=== PATIENT | female | born 1940 | race Caucasian/White ===

== ENCOUNTER 2020-05-07 08:27 | Outpatient (REF) | payer MEDICARE, OTHER, SELFPAY ==
--- NOTE | 2020-05-07 08:30 | MM_ITS ---
EXAMINATION: MM SCREENING DIGITAL BREAST TOMOSYNTHESIS, BILATERAL CLINICAL INFORMATION: Screening. Asymptomatic. The lifetime risk of breast cancer based on the Tyrer-Cuzick Model is 0.9%. COMPARISON: Mammography: May 02, 2019 and studies dating back to February 26, 2012 TECHNIQUE: Digital breast tomosynthesis is performed in both the craniocaudal and mediolateral oblique views along with computer-aided detection (CAD). Synthesized 2D images are generated from the tomosynthesis. FINDINGS: There are scattered areas of fibroglandular density (ACR BI-RADS breast composition Category b). There are no significant masses, abnormal calcifications, or other abnormalities. MM/MM tomosynthesis screening BI IMPRESSION: There are no significant changes from prior study. ASSESSMENT: BI-RADS 1: Negative RECOMMENDATION: Routine annual mammography screening. This patient's information was entered into a reminder system with a target due date for their next mammogram.
== END 2020-05-07 08:28 | disposition home or self-care (01) ==
LOC: HO.MAMMO 08:27
PROVIDERS: PCP Internal Medicine; Visit Provider Internal Medicine
DX: Z12.31 Encounter for screening mammogram for malignant neoplasm of breast (principal)
CPT/HCPCS: 77063; 77067

== ENCOUNTER 2021-05-08 09:43 | Outpatient (REF) | payer MEDICARE, OTHER, SELFPAY ==
--- NOTE | ~2021-05-08 | MM_ITS ---
EXAMINATION: MM SCREENING DIGITAL BREAST TOMOSYNTHESIS, BILATERAL CLINICAL INFORMATION: Screening. Asymptomatic. The lifetime risk of breast cancer based on the Tyrer-Cuzick Model is 1%. COMPARISON: Mammography: 05/07/2020, 05/02/2019, 04/30/2018 TECHNIQUE: Digital breast tomosynthesis is performed in both the craniocaudal and mediolateral oblique views along with computer-aided detection (CAD). Synthesized 2D images are generated from the tomosynthesis. FINDINGS: There are scattered areas of fibroglandular density (ACR BI-RADS breast composition Category b). Parenchymal pattern is similar to prior studies. There is fine fibronodular parenchymal pattern with minor stable asymmetries. No developing density or interval mass or architectural abnormality. No abnormal calcifications. Skin contours are smooth. MM/MM tomosynthesis screening BI IMPRESSION: No mammographic evidence of malignancy. ASSESSMENT: BI-RADS 2: Benign RECOMMENDATION: Routine annual mammography screening. This patient's information was entered into a reminder system with a target due date for their next mammogram.
== END 2021-05-08 09:44 | disposition home or self-care (01) ==
LOC: HO.MAMMO 09:43
PROVIDERS: PCP Internal Medicine; Visit Provider Internal Medicine
DX: Z12.31 Encounter for screening mammogram for malignant neoplasm of breast (principal)
CPT/HCPCS: 77063; 77067

== ENCOUNTER 2021-06-09 09:27 | Outpatient (REF) | payer MEDICARE, OTHER, SELFPAY ==
[2021-06-09 10:50] LABS: Free T4 (Free Thyroxine) 0.83 ng/dL (0.71-1.85); Thyroid Stimulating Hormone 0.18 uIU/mL (0.32-4.0); Vitamin D 25-OH Total 85.9 ng/mL (>30)
[2021-06-10 04:46] LABS: Triiodothyronine T3 Free 2.7 pg/mL (2.3-4.2)
== END 2021-06-09 09:28 | disposition home or self-care (01) ==
LOC: HO.LAB 09:27
PROVIDERS: PCP Internal Medicine; Visit Provider Family Medicine
DX: E03.8 Other specified hypothyroidism (principal); E55.9 Vitamin D deficiency, unspecified
CPT/HCPCS: 36415; 82306; 84439; 84443; 84481

== ENCOUNTER 2022-05-09 10:03 | Outpatient (REF) | payer MEDICARE, OTHER, SELFPAY ==
--- NOTE | ~2022-05-09 | MM_ITS ---
EXAMINATION: MM SCREENING DIGITAL BREAST TOMOSYNTHESIS, BILATERAL CLINICAL INFORMATION: Screening. Asymptomatic. COMPARISON: Mammography: 05/08/2021, 05/07/2020, 05/02/2019 TECHNIQUE: Digital breast tomosynthesis is performed in both the craniocaudal and mediolateral oblique views along with computer-aided detection (CAD). Synthesized 2D images are generated from the tomosynthesis. FINDINGS: There are scattered areas of fibroglandular density (ACR BI-RADS breast composition Category b). There are no significant masses, abnormal calcifications, or other abnormalities. Parenchymal pattern is similar to prior studies. There is no developing density or architectural abnormality. The axilla and skin contours are unremarkable. No significant changes. MM/MM tomosynthesis screening BI IMPRESSION: No mammographic evidence of malignancy. ASSESSMENT: BI-RADS 1: Negative RECOMMENDATION: Routine annual mammography screening. This patient's information was entered into a reminder system with a target due date for their next mammogram.
== END 2022-05-09 10:04 | disposition home or self-care (01) ==
LOC: HO.MAMMO 10:03
PROVIDERS: PCP Internal Medicine; Visit Provider Internal Medicine
DX: Z12.31 Encounter for screening mammogram for malignant neoplasm of breast (principal)
CPT/HCPCS: 77063; 77067

== ENCOUNTER 2023-05-15 09:53 | Outpatient (REF) | payer MEDICARE, OTHER, SELFPAY ==
--- NOTE | ~2023-05-15 | MM_ITS ---
EXAMINATION: MM SCREENING DIGITAL BREAST TOMOSYNTHESIS, BILATERAL CLINICAL INFORMATION: Screening. Asymptomatic. COMPARISON: Mammography: This study is compared with prior exams dating back to 2017. TECHNIQUE: Digital breast tomosynthesis is performed in both the craniocaudal and mediolateral oblique views along with computer-aided detection (CAD). Synthesized 2D images are generated from the tomosynthesis. FINDINGS: There are scattered areas of fibroglandular density (ACR BI-RADS breast composition Category b). There are no significant masses, abnormal calcifications, or other abnormalities. There is minor architectural change at the upper inner quadrant of the right breast from prior surgery for benign disease. There is a cardiac loop recorder the medial aspect of the left breast. MM/MM tomosynthesis screening BI IMPRESSION: No mammographic evidence of malignancy. ASSESSMENT: BI-RADS BI-RADS 2 - Benign Findings RECOMMENDATION: Routine annual mammography screening. 1 year F/U This examination should not preclude the clinical evaluation of a suspicious palpable abnormality. This patient's information was entered into a reminder system with a target due date for their next mammogram.
== END 2023-05-15 09:54 | disposition home or self-care (01) ==
LOC: HO.MAMMO 09:53
PROVIDERS: Visit Provider Internal Medicine
DX: Z12.31 Encounter for screening mammogram for malignant neoplasm of breast (principal)
CPT/HCPCS: 77063; 77067

== ENCOUNTER → 2023-05-15 10:00 | Outpatient (BNV) | payer MEDICARE, OTHER, SELFPAY | PROVIDERS: Visit Provider Radiology Diagnostic Radiology | DX: Z12.31 Encounter for screening mammogram for malignant neoplasm of breast (principal) | CPT/HCPCS: 77063; 77067 ==

== ENCOUNTER 2024-05-18 09:55 | Outpatient (REF) | payer MEDICARE, OTHER, SELFPAY ==
--- NOTE | ~2024-05-18 | MM_ITS ---
EXAMINATION: MM SCREENING DIGITAL BREAST TOMOSYNTHESIS, BILATERAL CLINICAL INFORMATION: Screening. Asymptomatic. COMPARISON: Mammography: Comparison is made with available priors TECHNIQUE: Digital breast mammography with tomosynthesis is performed in both the craniocaudal and mediolateral oblique views along with computer-aided detection (CAD). FINDINGS: There are scattered areas of fibroglandular density (ACR BI-RADS breast composition Category b). Right post surgical changes are stable. Cardiac loop recorder obscures and overlies the central inner left breast. There are no significant masses, abnormal calcifications, or other abnormalities. MM/MM tomosynthesis screening BI IMPRESSION: No mammographic evidence of malignancy. ASSESSMENT: BI-RADS BI-RADS 2 - Benign Findings RECOMMENDATION: Routine annual mammography screening. 1 year F/U This examination should not preclude the clinical evaluation of a suspicious palpable abnormality. This patient's information was entered into a reminder system with a target due date for their next mammogram. Electronically signed by: Nandini Adkins DO 05/26/2024 02:05 PM JOSE MANUEL ESTRELLA
== END 2024-05-18 09:56 | disposition home or self-care (01) ==
LOC: HO.MAMMO 09:55
PROVIDERS: PCP Internal Medicine; Visit Provider Internal Medicine
DX: Z12.31 Encounter for screening mammogram for malignant neoplasm of breast (principal)
CPT/HCPCS: 77063; 77067

== ENCOUNTER → 2024-05-18 10:15 | Outpatient (BNV) | payer MEDICARE, OTHER, SELFPAY | PROVIDERS: PCP Internal Medicine; Visit Provider Internal Medicine | DX: Z12.31 Encounter for screening mammogram for malignant neoplasm of breast (principal) | CPT/HCPCS: 77063; 77067 ==

== ENCOUNTER 2025-05-24 10:15 | Outpatient (REF) | payer MEDICARE, OTHER, SELFPAY ==
--- OUTSIDE RECORDS SUMMARY | 2025-05-24 12:03 | XMS_ITS | Encounter Summary ---
Author Organization [facility] Address [id number] [place] [address] Phone Care Team Providers Care Senior User Experience Architect Name Role Phone Dipak Hopson MD Unavailable [phone] Renée Pizarro MD Unavailable [phone] Dipak Hopson MD Primary Care Provider [phone] Dominik Gabriel MD Unavailable [phone] Dipak Hopson MD Unavailable Encounter Details Date Type Department Care Team (Late st Contact Info) Description 01/10/2023 Procedure Pass Non-Invasive Cardiology [address] [place] [address] Social History Tobacco Use Types Packs/Day Years Used Date Smoking Tobacco: Former Cigarettes 1 20 0 01/19/1959 - 01/20/1972 Smokeless Tobacco: Never Alcohol Use Standard Drinks/Week Comments Yes 2 (1 standard drink = 0.6 oz pure alcohol) 1-2 drinks, 2-3 x week, socially Education Answer Date Recorded Are you interested in more education? Not on brain e 11/09/2022 Are you concerned about learning? Not on file 11/09/2022 No 11/09/2022 No 11/09/2022 Digital Access Answer Date Recorded No 12/10/2022 No 12/10/2022 Reliable internet access at home? Not on file 12/10/2022 Device with a working camera? Not on file Comments No Sex and Gender Information Value Date Recorded Sex Assigned at Not on file Legal Sex Female 7:46 AM EST Gender Identity Not on file Sexual Orientation Choose not to disclose 2023 11:19 AM EDT documented as of this encounter Plan of Treatment Upcoming Encounters Date Type Department Care Team (Late st Contact Info) Description 05/24/2025 2:00 PM EST Office Visit [facility] Internal Medicine [address] [place] [address] Dipak Hopson MD [address] [place] [address] 06/29/2025 12:15 PM EST Office Visit [facility] 22 [facility] 3rd Floor, [address] [place], [place] [phone] Lonnie Cordova DO 22 [facility] [address] [place] [address] [phone] 12/13/2025 1:00 PM EDT Office Visit [facility] Internal Medicine [address] [place] [address] Dipak Hopson MD [address] [place], [place] [phone] documented as of this encounter Visit Diagnoses Not on filedocumented in this encounter Additional Health Concerns Assessment Noted Time PHQ-2 Depression Total Score: 0 11/16/19 23 12:53 PM EDT documented as of this encounter Care Teams Senior User Experience Architect Relationship Specialty Start Date End Date Dipak Hopson MD [address] [place] [address] PCP - General Internal Medicine 07/26/20 Dipak Hopson MD [address] [place] [address] Historical LMR Provider 05/02/17 Renée Pizarro MD [address] [place] [address] [email or web address] 01/28/20 Dominik Gabriel MD [address] [place] [phone] Family Medicine 08/04/20 Dipak Hopson MD [address] [place] [phone] Insurance Assigned Provider 10/19/23 documented as of this encounter Additional Source Comments The information contained in this document represents components of the legal health record. It is not the complete legal health record.[facility]
--- OUTSIDE RECORDS SUMMARY | 2025-05-24 12:03 | XMS_ITS | Encounter Summary ---
Author Organization [facility] Address [address] [facility] [address] [place] [address] Phone Care Team Providers Care Bead Forming Machine Operator Name Role Phone Dipak Hopson MD Unavailable Renée Pizarro MD Unavailable [phone] Dipak Hopson MD Primary Care Provider Dominik Gabriel MD Unavailable [phone] Dipak Hopson MD Unavailable Encounter Details Date Type Department Care Team (Late st Contact Info) Description 12/10/2023 Procedure Pass [facility], Ct Scan - [address] [address] Social History Tobacco Use Types Packs/Day Years [...] with a working camera? Not on file Intimate Partner Violence Answer Date R ecorded Denied Basic Needs Not on file 12/10/2023 In the past 12 months have y ou been in a relationship with a person who hurts, threatens, or tries to control you? No 12/10/2023 Worried food would run out Not on file 12/09 In the past 12 months have y ou been in a relationship with a person who hurts, threatens, or tries to control you? No 12/10/2023 Comments No Sex and Gender Information Value Date Recorded Sex Assigned at Not on file Legal Sex Female 7:46 AM EST Gender Identity Not on file Sexual Orientation Choose not to disclose 2023 11:19 AM EDT documented as of this encounter Plan of Treatment Upcoming Encounters Date Type Department Care Team (Late st Contact Info) Description 05/24/2025 2:00 PM EST Office Visit [facility] Internal Medicine [address] [place] [address] Dipak Hopson MD [address] [place] [address] 06/29/2025 12:15 PM EST Office Visit [facility] [address] [place] [address] 3rd Floor, [address] [place] [address] Lonnie Cordova DO [address] [phone] 12/13/2025 1:00 PM EDT Office Visit [facility] Internal Medicine [address] [place] [address] Dipak Hopson MD [address] [place] [address] documented as of this encounter Visit Diagnoses Not on filedocumented in this encounter Additional Health Concerns Assessment Noted Time PHQ-2 Depression Total Score: 0 12/10/19 24 12:49 PM EDT documented as of this encounter Care Teams Bead Forming Machine Operator Relationship Specialty Start Date End Date Dipak Hopson MD [address] [place] [address] [email or web address] PCP - General Internal Medicine 07/26/20 Dipak Hopson MD [address] [place] [address] [email or web address] Historical LMR Provider 05/02/17 Renée Pizarro MD [address] [place] [address] [email or web address] 01/28/20 Dominik Gabriel MD [address] [place] [address] Family Medicine 08/04/20 Dipak Hopson MD [address] [place] [address] [email or web address] Insurance Assigned Provider 10/19/23 documented as of this encounter Additional Source Comments The information contained in this document represents components of the legal health record. It is not the complete legal health record.[facility]
--- OUTSIDE RECORDS SUMMARY | 2025-05-24 12:03 | XMS_ITS | Encounter Summary ---
Author Organization [facility] Address [address] [place], [place] [address] [place] [address] Phone Care Team Providers Care Interdisciplinary Professor Name Role Phone Dipak Hopson MD Unavailable Luther Moreno MD Unavailable [phone] Renée Pizarro MD Unavailable [phone] Dipak Hopson MD Primary Care Provider [phone] Dominik Gabriel MD Unavailable [phone] Dipak Hopson MD Unavailable Encounter Details Date Type Department Care Team (Late st Contact Info) Description 07/17/2021 Procedure Pass [facility] [address] [place] [address] Social History Tobacco Use Types Packs/Day Years Used Date Smoking Tobacco: Former Cigarettes 1 20 0 01/19/1959 - 01/20/1972 Smokeless Tobacco: Never Alcohol Use Standard Drinks/Week Comments Yes 1 (1 standard drink = 0.6 oz pur e alcohol) once a week, socially Comments No Sex and Gender Information Value Date Recorded Sex Assigned at Not on file Legal Sex Female 7:46 AM EST Gender Identity Not on file Sexual Orientation Choose not to disclose 2023 11:19 AM EDT documented as of this encounter Plan of Treatment Upcoming Encounters Date Type Department Care Team (Late st Contact Info) Description 05/24/2025 2:00 PM EST Office Visit [facility] Internal Medicine [address] [place] [address] Dipak Hopson MD [address] [place], [place] [phone] 06/29/2025 12:15 PM EST Office Visit [facility] 22 [facility] 3rd Floor, [address] [place] [address] Lonnie Cordova DO [address] [address] 12/13/2025 1:00 PM EDT Office Visit [facility] Internal Medicine [address] [place], [place] [phone] Dipak Hopson MD [address] [place], [place] [phone] documented as of this encounter Visit Diagnoses Not on filedocumented in this encounter Additional Health Concerns Assessment Noted Time PHQ-2 Depression Total Score: 0 08/22/19 22 1:30 PM EST documented as of this encounter Care Teams Interdisciplinary Professor Relationship Specialty Start Date End Date Dipak Hopson MD [address] [place], [place] [phone] PCP - General Internal Medicine 07/26/20 Dipak Hopson MD [address] [place] [address] [phone] Historical LMR Provider 05/02/17 Luther Moreno MD 22 [facility], [address] [id number] [email or web address] Historical LMR Provider 05/02/17 07/22/21 Renée Pizarro MD [address] [place] [address] [address] [place] [address] [email or web address] 01/28/20 Dominik Gabriel MD [address] [place] [address] [email or web address] Family Medicine 08/04/20 Dipak Hopson MD [address] [place] [address] [email or web address] Insurance Assigned Provider 10/19/23 documented as of this encounter Additional Source Comments The information contained in this document represents components of the legal health record. It is not the complete legal health record.[facility]
--- OUTSIDE RECORDS SUMMARY | 2025-05-24 12:03 | XMS_ITS | Encounter Summary ---
Author Organization [facility] Address [address] [place] [address] Phone Care Team Providers Care Technical Systems Architect Name Role Phone Dipak Hopson MD Unavailable [phone] Renée Pizarro MD Unavailable [phone] Dipak Hopson MD Primary Care Provider Dominik Gabriel MD Unavailable [phone] Dipak Hopson MD Unavailable Encounter Details Date Type Department Care Team (Late Contact Info) Description 09/24/2022 Procedure Pass [facility] Endoscopy Admitting Dept Virtual Department [address] [place], [place] [phone] Social History Tobacco Use Types Packs/Day Years [...] Encounters Date Type Department Care Team (Late Contact Info) Description 05/24/2025 2:00 PM EST Office Visit [facility] [place] [phone] Dipak Hopson MD 40 [place], [place] [phone] 06/29/2025 12:15 PM EST Office Visit [facility] 22 [facility] 3rd Floor, [address] [place] [address] Lonnie Cordova DO 22 [facility] [address] [place] [address] 12/13/2025 1:00 PM EDT Office Visit [facility] Internal Medicine 40 [place], [place] 653[address] Dipak Hopson MD [address] [place], [place] [phone] documented as of this encounter Visit Diagnoses Not on filedocumented in this encounter Additional Health Concerns Assessment Noted Time PHQ-2 Depression Total Score: 0 08/22/19 22 1:30 PM EST documented as of this encounter Care Teams Technical Systems Architect Relationship Specialty Start Date End Date Dipak Hopson MD [address] [place] [address] [phone] PCP - General Internal Medicine 07/26/20 Dipak Hopson MD [address] [place] [address] [phone] Historical LMR Provider 05/02/17 Renée Pizarro MD [address] [place] [address] Ophthalmology 01/28/20 Dominik Gabriel MD [address] [place] [address] [email or web address] Medicine 08/04/20 Dipak Hopson MD [address] [place] [address] [email or web address] Insurance Assigned Provider 10/19/23 documented as of this encounter Additional Source Comments The information contained in this document represents components of the legal health record. It is not the complete legal health record.[facility]
--- OUTSIDE RECORDS SUMMARY | 2025-05-24 12:03 | XMS_ITS | Encounter Summary ---
Author Organization [facility] Address [address] [place], [place] [address] [place] [address] Phone Care Team Providers Care Brick Baker Name Role Phone Dipak Hopson MD Unavailable Luther Moreno MD Unavailable [phone] Renée Pizarro MD Unavailable [phone] Dipak Hopson MD Primary Care Provider [phone] Dominik Gabriel MD Unavailable [phone] Dipak Hopson MD Unavailable [phone] Encounter Details Date Type Department Care Team (Late st Contact Info) Description 10/03/2020 Procedure Pass [facility] Endoscopy Admitting Dept Virtual Department [address] [place] [address] Social History Tobacco Use Types Packs/Day Years Used Date Smoking Tobacco: Former Cigarettes 1 20 0 01/19/1959 - 01/20/1972 Smokeless Tobacco: Never Alcohol Use Standard Drinks/Week Comments Not Currently 3 (1 standard drink = 0.6 oz pur e alcohol) Comments No Sex and Gender Information Value Date Recorded Sex Assigned at Not on file Legal Sex Female 7:46 AM EST Gender Identity Not on file Sexual Orientation Choose not to disclose 2023 11:19 AM EDT documented as of this encounter Plan of Treatment Upcoming Encounters Date Type Department Care Team (Late Contact Info) Description 05/24/2025 2:00 PM EST Office Visit [facility] Internal Medicine [address] [place] [address] Dipak Hopson MD [address] [place], [place] [phone] 06/29/2025 12:15 PM EST Office Visit [facility] 22 [facility] 3rd Floor, [address] [place] [address] Lonnie Cordova DO [address] [address] 12/13/2025 1:00 PM EDT Office Visit [facility] Internal Medicine [address] [place], [place] [phone] Dipak Hopson MD 40 [place], [place] [phone] documented as of this encounter Visit Diagnoses Not on filedocumented in this encounter Additional Health Concerns Assessment Noted Time PHQ-2 Depression Total Score: 0 01/28/20 20 12:55 PM EDT documented as of this encounter Care Teams Brick Baker Relationship Specialty Start Date End Date Dipak Hopson MD [address] [place] [address] [phone] PCP - General Internal Medicine 07/26/20 Dipak Hopson MD [address] [place] [address] [phone] Historical LMR Provider 05/02/17 Luther Moreno MD 22 [facility], [address] [address] [email or web address] Historical LMR Provider 05/02/17 07/22/21 Renée Pizarro MD [address] [place] [address] [address] [place] [address] [email or web address] 01/28/20 Dominik Gabriel MD [address] [place] [address] [email or web address] Family Medicine 08/04/20 Dipak Hopson MD [address] [place] [address] [email or web address] Insurance Assigned Provider 10/19/23 documented as of this encounter Additional Source Comments The information contained in this document represents components of the legal health record. It is not the complete legal health record.[facility]
--- OUTSIDE RECORDS SUMMARY | 2025-05-24 12:03 | XMS_ITS | Encounter Summary ---
Author Organization [facility] Address [address] [place] [address] Phone Care Team Providers Care Shank Maker Name Role Phone Dipak Hopson MD Unavailable [phone] Renée Pizarro MD Unavailable [phone] Dipak Hopson MD Primary Care Provider Dominik Gabriel MD Unavailable [phone] Dipak Hopson MD Unavailable Encounter Details Date Type Department Care Team (Late st Contact Info) Description 01/04/2023 Procedure Pass Non-Invasive Cardiology [address] [place] [address] Social History Tobacco Use Types Packs/Day Years [...] Description 05/24/2025 2:00 PM EST Office Visit [facility] Internal Medicine [address] [place] [address] Dipak Hopson MD [address] [place] [address] 06/29/2025 12:15 PM EST Office Visit [facility] 22 [facility] 3rd Floor, [address] [place], [place] [phone] Lonnie Cordova DO 22 [facility] [address] [place] [address] [phone] 12/13/2025 1:00 PM EDT Office Visit [facility] Internal Medicine [address] [place] [address] Dipak Hopson MD 40 [place], [place] [phone] documented as of this encounter Visit Diagnoses Not on filedocumented in this encounter Additional Health Concerns Assessment Noted Time PHQ-2 Depression Total Score: 0 11/16/19 23 12:53 PM EDT documented as of this encounter Care Teams Shank Maker Relationship Specialty Start Date End Date Dipak Hopson MD [address] [place] [address] PCP - General Internal Medicine 07/26/20 Dipak Hopson MD [address] [place] [address] Historical LMR Provider 05/02/17 Renée Pizarro MD [address] [place] [address] [email or web address] 01/28/20 Dominik Gabriel MD [address] [place] [address] Family Medicine 08/04/20 Dipak Hopson MD [address] [place] [phone] Insurance Assigned Provider 10/19/23 documented as of this encounter Additional Source Comments The information contained in this document represents components of the legal health record. It is not the complete legal health record.[facility]
--- OUTSIDE RECORDS SUMMARY | 2025-05-24 12:03 | XMS_ITS | Encounter Summary ---
Author Organization [facility] Address [address] [facility] [address] [place] [address] Phone Care Team Providers Care Websphere Commerce Consultant Name Role Phone Dipak Hopson MD Unavailable [phone] Renée Pizarro MD Unavailable [phone] Dipak Hopson MD Primary Care Provider [phone] Dominik Gabriel MD Unavailable [phone] Dipak Hopson MD Unavailable [phone] Encounter Details Date Type Department Care Team (Late st Contact Info) Description 06/13/2023 Procedure Pass [facility], Ct Scan - [address] [address] Social History Tobacco Use Types Packs/Day Years [...] AM EDT documented as of this encounter Functional Status * Calculated C-SSRS Risk Score (Lifetime/Recent) Answer Date of Assessment Author No Risk Indicated 06/13/2023 9:12 PM Dahiana Cisneros RN * [place] Suicide Severity Rating Scale (Screener/Recent Self-Report) Question Answer Date of Assessment Author 1. Wish to be (Past 1 Month) No 023 9:12 PM Dahiana Cisneros RN 2. Non-Specific Active Suici michelle Thoughts (Past 1 Month) No 06/13/2023 9:12 PM Deanna Cisneros RN 6. Suicidal Behavior (Lifetime) No 9:12 PM Dahiana Cisneros RN documented as of this encounter Plan of Treatment Upcoming Encounters Date Type Department Care Team (Late st Contact Info) Description 05/24/2025 2:00 PM EST Office Visit [facility] Internal Medicine [address] [place] [address] Dipak Hopson MD [address] [place] [phone] 06/29/2025 12:15 PM EST Office Visit [facility] [address] [place] [address] [address]rd Floor, [address] [place] [address] Lonnie Crodova DO 22 [facility] [address] [place] [address] 12/13/2025 1:00 PM EDT Office Visit [facility] Internal Medicine [address] [place] [address] Dipak Hopson MD [address] [place], [place] [phone] documented as of this encounter Visit Diagnoses Not on filedocumented in this encounter Additional Health Concerns Assessment Noted Time PHQ-2 Depression Total Score: 0 11/16/19 23 12:53 PM EDT documented as of this encounter Care Teams Websphere Commerce Consultant Relationship Specialty Start Date End Date Dipak Hopson MD [address] [place] [address] [email or web address] PCP - General Internal Medicine 07/26/20 Dipak Hopson MD [address] [place] [address] Historical LMR Provider 05/02/17 Renée Pizarro MD [address] [place] [address] [email or web address] 01/28/20 Dominik Gabriel MD [address] [place] [address] [email or web address] 08/04/20 Dipak Hopson MD [address] [place] [address] [email or web address] Insurance Assigned Provider 10/19/23 documented as of this encounter Additional Source Comments The information contained in this document represents components of the legal health record. It is not the complete legal health record.[facility]
--- OUTSIDE RECORDS SUMMARY | 2025-05-24 12:03 | XMS_ITS | Encounter Summary ---
Author Organization [facility] Address [address] [place], [place] [address] [place] [address] Phone Care Team Providers Care Chopped Strand Operator Name Role Phone Dipak Hopson MD Unavailable Luther Moreno MD Unavailable [phone] Renée Pizarro MD Unavailable [phone] Dipak Hopson MD Primary Care Provider [phone] Dominik Gabriel MD Unavailable [phone] Dipak Hopson MD Unavailable Encounter Details Date Type Department Care Team (Late st Contact Info) Description 07/17/2021 Procedure Pass [facility] Cardiology [address] [place] [address] Social History Tobacco Use Types Packs/Day Years Used Date Smoking Tobacco: Former Cigarettes 1 20 0 01/19/1959 - 01/20/1972 Smokeless Tobacco: Never Alcohol Use Standard Drinks/Week Comments Yes 0 (1 standard drink = 0.6 oz pur e alcohol) once a week Comments No Sex and Gender Information Value Date Recorded Sex Assigned at Not on file Legal Sex Female 7:46 AM EST Gender Identity Not on file Sexual Orientation Choose not to disclose 2023 11:19 AM EDT documented as of this encounter Plan of Treatment Upcoming Encounters Date Type Department Care Team (Late st Contact Info) Description 05/24/2025 2:00 PM EST Office Visit [facility] Internal Medicine [address] [place] [address] Dipak Hopson MD [address] [place], [place] [phone] 06/29/2025 12:15 PM EST Office Visit [facility] [address] Floor, [address] [place] [address] Lonnie Cordova DO [address] [id number] 12/13/2025 1:00 PM EDT Office Visit [facility] Internal Medicine [address] [place], [place] [phone] Dipak Hopson MD [address] [place] [address] [phone] documented as of this encounter Visit Diagnoses Not on filedocumented in this encounter Additional Health Concerns Assessment Noted Time PHQ-2 Depression Total Score: 0 01/28/20 20 12:55 PM EDT documented as of this encounter Care Teams Chopped Strand Operator Relationship Specialty Start Date End Date Dipak Hopson MD [address] [place] [address] [phone] PCP - General Internal Medicine 07/26/20 Dipak Hopson MD [address] [place] [address] [phone] Historical LMR Provider 05/02/17 Luther Moreno MD 22 [facility], [address] [phone] [email or web address] Historical LMR Provider 05/02/17 07/22/21 Renée Pizarro MD [address] [place] [address] [address] [place] [address] [email or web address] 01/28/20 Dominik Gabriel MD [address] [place] [email or web address] Family Medicine 08/04/20 Dipak Hopson MD [address] [place] [address] [email or web address] Insurance Assigned Provider 10/19/23 documented as of this encounter Additional Source Comments The information contained in this document represents components of the legal health record. It is not the complete legal health record.[facility]
--- OUTSIDE RECORDS SUMMARY | 2025-05-24 12:03 | XMS_ITS | Encounter Summary ---
Author Organization [facility] Address [address] [facility] [address] [place] [address] Phone Care Team Providers Care Amortization Clerk Name Role Phone Dipak Hopson MD Unavailable [phone] Renée Pizarro MD Unavailable [phone] Dipak Hopson MD Primary Care Provider [phone] Dominik Gabriel MD Unavailable [phone] Dipak Hopson MD Unavailable [phone] Encounter Details Date Type Department Care Team (Late st Contact Info) Description 06/13/2023 Procedure Pass [facility], Ct Scan - [address] [address] Social History Tobacco Use Types Packs/Day Years [...] 06/13/2023 9:12 PM Dahiana Cisneros RN * [place] Suicide Severity Rating Scale (Screener/Recent Self-Report) Question [...] Description 05/24/2025 2:00 PM EST Office Visit [facility] Internal Medicine [address] [place] [address] Dipak Hopson MD [address] [place] [address] 06/29/2025 12:15 PM EST Office Visit [facility] [address] [place] [address] 3rd Floor, [address] [place] [address] Lonnie Cordova DO 22 [facility] [address] [place] [address] 12/13/2025 1:00 PM EDT Office Visit [facility] Internal Medicine [address] [place] [address] Dipak Hopson MD [address] [place], [place] [phone] documented as of this encounter Visit Diagnoses Not on filedocumented in this encounter Additional Health Concerns Assessment Noted Time PHQ-2 Depression Total Score: 0 11/16/19 23 12:53 PM EDT documented as of this encounter Care Teams Amortization Clerk Relationship Specialty Start Date End Date Dipak Hopson MD [address] [place] [address] [email or web address] PCP - General Internal Medicine 07/26/20 Dipak Hopson MD [address] [place] [address] Historical LMR Provider 05/02/17 Renée Pizarro MD [address] [place] [address] [email or web address] 01/28/20 Dominik Gabriel MD [address] [place] [address] [email or web address] 08/04/20 Dipak Hopson MD [address] [place] [address] [email or web address] Insurance Assigned Provider 10/19/23 documented as of this encounter Additional Source Comments The information contained in this document represents components of the legal health record. It is not the complete legal health record.[facility]
--- OUTSIDE RECORDS SUMMARY | 2025-05-24 12:03 | XMS_ITS | Clinical Summary ---
Author Organization [facility] Address [address] [place] [address] Phone Care Team Providers Care Assistant Director Of Nursing Name Role Phone Dipak Hopson MD Unavailable [phone] Renée Pizarro MD Unavailable [phone] Dipak Hopson MD Primary Care Provider Dominik Gabriel MD Unavailable [phone] Dipak Hopson MD Unavailable Allergies Active Allergy Reactions Criticality Noted Date Comments Rosuvastatin Myalgia 08/04/2020 Atorvastatin Myalgia 08/04/2020 Lisinopril 12/14/2024 Hair loss Pravastatin Myalgia 08/04/2020 Simvastatin Myalgia 08/04/2020 Medications coenzyme [id number] 100-5 mg-unit Cap Take 1 capsule by mouth daily. Active Lactobacillus acidophilus 10 billion cell Cap Take 1 capsule by mouth daily. Prebiotic and probiotic oral Active b complex vitamins tablet Take 1 tablet by mouth 2 (two) times a week. Up to three times a week Active cholecalciferol (VITAMIN D3) 4,000 unit tablet Take 1,000 Units by mouth daily. Active thyroid, pork, (ARMOUR THYROID) 15 mg Tab Take 3 tabs by mouth every other morning. Alternate days, continue 60 mg by mouth. 90 tablet 1 2 Active Additional Information Patient taking differently: 45 mg Oral Daily, (No instructions reported), Reported on 12/14/2024 COLLAGEN MISC Take by mouth. Mix 1 spoonful into coffee every morning. Active docosahexaenoic acid/epa (FISH OIL ORAL) Take 1 capsule by mouth daily. Active wheat germ oil Oil Take 2 capsules by mouth daily. Active BERGAMOT EXTRACT ORAL Take 1 capsule by mouth daily. Active berberine chloride 500 mg Cap Take 1 capsule by mouth 2 (two) times a day. Active ascorbic acid, vitamin C, (VITAMIN C) 500 MG tablet Take 1,000 mg by mouth daily. Active Medication-Free TextIndications: Bone restore and bone strength Take 1 capsule by mouth daily. Indications: Bone restore and bone strength Active Medication-Free TextIndications: Neuro-Mag (Life extension brand) Take 1 capsule by mouth daily. Indications: Neuro-Mag (Life extension brand) Active zinc sulfate (ZINC-15 ORAL) Take by mouth. Active amLODIPine (NORVASC) 10 MG tabletIndication s:Essential hypertension TAKE 1 TABLET BY MOUTH EVERY DAY 90 tablet 3 Active Active Problems Problem Noted Date Diagnosed Date Chest pain 10/28/2024 Assessment & Plan (12/14/2024 2:07 PM EDT): When I last saw her she was having a new onset atypical chest discomfort. Due to longstanding severe hyperlipidemia as well as her strong family history of CAD she was ordered for nuclear stress test which ended up being normal. She is back at the gym staying very active, she is not having any concerning symptoms. This very well may have all been stress related after losing her in August. No additional testing indicated at this time. Assessment & Plan (10/28/2024 11:16 AM EDT): She been having atypical nonexertional chest discomfort for the past couple months. Not exertional however she does have a decreased activity tolerance she says. She has strong family history of CAD, brother/sister and father all with coronary disease. She also does have uncontrolled hyperlipidemia, her LDL has been persistently in the 200s, previously intolerant to multiple statins and has declined PCSK9 inhibitor. Will get a nuclear stress test and follow-up here in the office after. Palpitations 06/18/2024 Assessment & Plan (12/14/2024 2:10 PM EDT): Due to some palpitations following a COVID vaccination which had been resolved she gotten an ILR. Still being monitored and has not shown any atrial fibrillation or any other concerning arrhythmia to date. Assessment & Plan (06/18/2024 5:19 PM EST): Was having symptoms for about a month in the setting of COVID-19 infection as well as vaccination Got an ILR because of this however symptoms resolved on their own after ILR was implanted ILR has not shown any atrial fibrillation or significant arrhythmia to date Will continue monitoring remote ILR downloads Murmur, cardiac 06/18/2024 Assessment & Plan (06/18/2024 5:20 PM EST): She does have a soft systolic murmur on exam best heard at the right sternal border She tells me that she has had a heart murmur since her teenage years No concerning symptoms with this however We reviewed her echocardiogram from 2021 which did not show any significant valvular abnormality HTN (hypertension) 07/11/2017 Assessment & Plan (12/14/2024 2:04 PM EDT): Well-controlled on current medications which will be continued without change Assessment & Plan (10/28/2024 11:17 AM EDT): Blood pressure elevated here in the office today however historically been well-controlled at home. Will follow-up on this more at next visit. Will continue current antihypertensive without change for now. Assessment & Plan (06/18/2024 5:16 PM EST): Blood pressure well-controlled at home. Will continue current medications without change Hyperlipidemia 07/11/2017 Assessment & Plan (12/14/2024 2:04 PM EDT): Historically been intolerant to multiple statins. She has been recommended for PCSK9 inhibitor which she has declined. Lab Results Component Value Date CHOL 306 (H) 05/14/2024 HDL 69 05/14/2024 LDL 217 (H) 05/14/2024 TRIG 98 05/14/2024 CHOLHDL 4.4 05/14/2024 Assessment & Plan (06/18/2024 5:18 PM EST): Lab Results Component Value Date CHOL 306 (H) 05/14/2024 HDL 69 05/14/2024 LDL 217 (H) 05/14/2024 TRIG 98 05/14/2024 CHOLHDL 4.4 05/14/2024 She has pretty high LDL cholesterol, looking back over time multiple readings in the 200s. She has been intolerant of multiple statins. She has a strong family history of CAD however today it has had no known coronary events or strokes herself. Still very active, no exertional symptoms. We did discuss considering trialing a PCSK9 inhibitor which I did recommend. She is not interested in doing this at this time. She is aware that she can give me a call at any time if she changes her mind and that this is something that can be ordered. Mixed hyperlipidemia 07/11/2017 Assessment & Plan (10/28/2024 11:17 AM EDT): Previously intolerant of multiple statins. She has been recommended for PCSK9 inhibitor which she has declined. Lab Results Component Value Date CHOL 306 (H) 05/14/2024 HDL 69 05/14/2024 LDL 217 (H) 05/14/2024 TRIG 98 05/14/2024 CHOLHDL 4.4 05/14/2024 ;id Nocturia 07/11/2017 Hypothyroidism 07/11/2017 RBBB (right bundle branch block) Colonic polyp Overview (08/04/2020): adenoma and 1 adenocarcinoma in 1996 Encounters Date Type Department Care Team Description 05/09/2025 Orders Only [facility] [address], [address] [place] [address] Elsa Rodriguez MD 03/29/2025 Orders Only [facility] [address], [address] [place] [address] Elsa Rodriguez MD from Last 3 Months Immunizations Immunization Administration Dates Next Due COVID-19 (Pre-05/06) Yolande Vaccine, rS-Ad26, P F 09/17/2020 Pneumococcal conjugate PCV13 07/14/2015 Pneumococcal polysaccharide PPSV23 01/16/2018 Td (adult) 5 Lf Tetanus Toxoid, PF, Adsorbed Family History Medical History Relation Comments Atrial fibrillation Brother Heart attack Brother Heart attack Father Heart disease Father Diabetes Mother Cancer Paternal Grandmother Heart attack Sister Heart disease Sister Relation Status Comments Brother (Age 90 had valve repac ed 88) 90 Daughter Other Father (Age 75) Mother 90 Paternal Grandmother Sister Social History Tobacco Use Types Packs/Day Years Used Date Smoking Tobacco: Former Cigarettes 1 20 0 01/19/1959 - 01/20/1972 Smokeless Tobacco: Never Tobacco Cessation:Counseling Given: Not Answered Alcohol Use Standard Drinks/Week Comments Yes 7 (1 standard drink = 0.6 oz pur e alcohol) Education Answer Date Recorded Are you interested [...] ecorded Denied Basic Needs Not on file 12/10/2024 In the past 12 months have y ou been in a relationship with a person who hurts, threatens, or tries to control you? No 12/10/2024 Worried food would run out Not on file 12/10 In the past 12 months have y ou been in a relationship with a person who hurts, threatens, or tries to control you? No 12/10/2024 Comments No Sex and Gender Information Value Date Recorded Sex Assigned at Not on file Legal Sex Female 7:46 AM EST Gender Identity Not on file Sexual Orientation Choose not to disclose 2023 11:19 AM EDT Last Filed Vital Signs Vital Sign Reading Time Taken Comments Blood Pressure 128/76 12/14/2024 1:37 PM EDT Pulse 100 12/14/2024 1:37 PM EDT Temperature 36.9 C (98.5 F) 12/10/2024 1:18 PM EDT Respiratory Rate 16 12/10/2024 1:18 PM EDT Oxygen Saturation 95% 12/14/2024 1:37 PM EDT Inhaled Oxygen Concentration - - Weight 53 kg (116 lb 12.8 oz) 12/14/2024 1:37 PM EDT Height 154.1 cm (5' 0.67 ) 12/14/2024 1:37 PM ED T Body Mass Index 22.31 12/14/2024 1:37 PM EDT Plan of Treatment Upcoming Encounters Date Type Department Care Team (Late st Contact Info) Description 05/24/2025 2:00 PM EST Office Visit [facility] Internal [facility] [address] [place] [address] Dipak Hopson MD [address] [place] [address] 06/29/2025 12:15 PM EST Office Visit [facility] [address] [facility] 3rd Floor, [address] [place] [address] Lonnie Cordova DO 22 [facility] [address] [place] [address] 12/13/2025 1:00 PM EDT Office Visit [facility] Internal Medicine [address] [place] [address] Dipak Hopson MD [address] [place] [address] Health Maintenance Due Date Last Done Comments COLOGUARD 1983 FOBT 1983 VIRTUAL COLONOSCOPY 1983 RSV VACCINE (1 - 1-dose 75+ series) 2013 FIT TEST 08/23/2024 08/23/2023 COVID-19 VACCINE (2 - 2024-2 6 season) 2025 09/17/2020 COLONOSCOPY 10/03/2025 10/03/2020, 09/09/2015 COLORECTAL CANCER SCREENING 10/03/2025 DEPRESSION SCREENING 12/10/2025 12/10/2024 Adult Td,Tdap Booster 12/04/2026 12/04/2016 SIGMOIDOSCOPY 09/25/2027 09/24/2022 PNEUMOCOCCAL VACCINES (50+ years) Completed 01/16/2018, 07/14/2015 OSTEOPOROSIS SCREENING INITI AL (ONE-TIME) Completed 02/05/2020, 05/14/2014 HEPATITIS A VACCINES Aged Out No long er eligible based on patient's age to complete this topic HIB VACCINES Aged Out No longer eligi ble based on patient's age to complete this topic MENINGOCOCCAL VACCINES (ACWY) Aged Out No longer eligible based on patient's age to complete this topic MENINGOCOCCAL VACCINES (B) Aged Out N o longer eligible based on patient's age to complete this topic Medical Devices Not on file Procedures Procedure Name Priority Date/Time Associated Diagnosis Comments OUTSIDE EP STUDY Routine 03/10/2025 2:39 PM EDT FECAL IMMUNOCHEMICAL BLOOD TEST X1 (FIT) Routine 08/23/2023 7:40 AM EST Diagnosis unknown ENDOSCOPY, SIGMOID 09/24/2022 10 :45 AM EDT ENDOSCOPY, COLON 10/03/2020 8:07 AM EDT BD DXA MONITORING Routine 02/05/2020 12: 39 PM EDT Postmenopausal estrogen deficiency Osteopenia, unspecified location from Last 3 Months or Most Recently Relevant to Health Maintenance Results * Outside EP Study Report Only (03/10/2025 2:39 PM EDT) Historical Provider MD BINH SMYTH Final Result * Fecal immunochemical test x1 (FIT) (08/23/2023 7:40 AM EST) Immuno Fecal Occult Negative Negative [facility] Stool (Stool) 08/23/2023 7:4 0 AM EST 08/23/2023 1:42 PM EST Floresita Bruno PA-C LAB BODY FLUIDS AND STOOL ORDER SHAHID Final Result [facility] [address] [place] [address] * ENDOSCOPY, SIGMOID (09/24/2022 10:45 AM EDT) Narrative Transcriptions Keegan Chandler MD - 09/24/2022 10:45 AM EDT [facility] Patient Name: Dixie Jones Attending MD:: KEEGAN CHANDLER MD, Procedure Date: 09/24/2022 10:45 AM Date of : 1940 Age: 82 Admit Type: Outpatient Gender: Female Room: [place] [address] Referring MD: DIPAK HOPSON MD Exam Type: Flexible Sigmoidoscopy Indications: Rectal hemorrhage, Hematochezia Medications: Monitored Anesthesia Care Procedure: Informed consent was obtained from the patientafter discussion of the indications, limitations, alternatives, benefits, and risks of the procedure. Risks specifically discussed include but are not limited to medication reactions, missed lesions, bleeding, perforation, or the need for emergent surgery. Throughout the procedure, the patient's blood pressure, pulse, end-tidal CO2, and oxygensaturations were monitored continuously. The Olympus pediatric variable colonoscope PCF-H190DL #4 was introduced through the anus and advanced to the splenicflexure. The flexible sigmoidoscopy was accomplished without difficulty. The patient tolerated the procedurefairly well. The quality of the bowel preparation was adequate to identify polyps. Complications: No immediate complications. Estimated blood loss:None. Findings: Hemorrhoids were found on perianal exam. Multiple small and large-mouthed diverticula were found in the sigmoid colon and descending colon. Non-bleeding internal hemorrhoids were found during retroflexion. The hemorrhoids were moderate. The exam was otherwise without abnormality. Impression: - Hemorrhoids found on perianal exam. - Diverticulosis in the sigmoid colon and in the descending colon. - Non-bleeding internal hemorrhoids. - The examination was otherwise normal. - No specimens collected. Recommendation: - Use fiber, for example Citrucel, Fibercon, Konsylor Metamucil. - Reassurance - Return to GI office PRN. KEEGAN CHANDLER MD 09/24/2022 11:00:21 AM This report has been signed electronically. Number of Addenda: 0 Note Initiated On: 09/24/2022 10:45 AM Procedure Code(s): --- Professional --- 56460, Sigmoidoscopy, flexible; diagnostic, including collection of specimen(s) by brushing or washing, when performed (separateprocedure) --- Technical --- 18190, Sigmoidoscopy, flexible; diagnostic, including collection of specimen(s) by brushing or washing, when performed (separateprocedure) Diagnosis Code(s): --- Professional --- K64.8, Other hemorrhoids K62.5, Hemorrhage of anus and rectum K92.1, Melena (includes Hematochezia) K57.30, Diverticulosis of large intestine without perforation or abscess without bleeding --- Technical --- K64.8, Other hemorrhoids K62.5, Hemorrhage of anus and rectum K92.1, Melena (includes Hematochezia) K57.30, Diverticulosis of large intestine without perforation or abscess without bleeding CPT copyright 2021 [employer] [place] [employer]. All rights reserved. The codes documented in this report are preliminary and upon makeup artist reviewmay be revised to meet current compliance requirements. Procedure Date: 09/24/2022 10:45:[address] [place] [address] [place] Dipak Hopson MD GI PROCEDURE ORDERABLES Final Result * ENDOSCOPY, COLON (10/03/2020 8:07 AM EDT) Narrative Transcriptions Keegan Chandler MD - 10/03/2020 8:07 AM EDT Patient Name: Dixie Jones Attending MD:: KEEGAN CHANDLER MD Procedure Date: 10/03/2020 8:07 AM Date of : 1940 Age: 80 Admit Type: Outpatient Gender: Female Room: [place] [address] Referring MD: DIPAK HOPSON MD Exam Type: Colonoscopy Indications: Surveillance: Personal history of adenomatous polypson last colonoscopy > 5 years ago, Last colonoscopy: August 2015, Follow-up of colon cancer Medications: Propofol per Anesthesia Procedure: Informed consent was obtained from the patient after discussion of the indications, limitations, alternatives, benefits, and risks of the procedure. Risks specifically discussed include but are not limited to medication reactions, missed lesions, bleeding, perforation, or the need for emergentsurgery. Throughout the procedure, the patient's bloodpressure, pulse, end-tidal CO2, and oxygen saturations were monitored continuously. The Olympus pediatric variable colonoscopePCF-H190DL #6 was introduced through the anus and advanced tothe cecum, identified by the appendiceal orifice,ileocecal valve and palpation. The colonoscopy was performed without difficulty. The patient tolerated theprocedure fairly well. The quality of the bowel preparationwas good. Complications: No immediate complications. Estimated blood loss: Minimal. Findings: The perianal and digital rectal examinations were normal. Pertinent negatives include no palpablerectal lesions. A 5 mm polyp was found in the distal sigmoid colonat 15 cm proximal to the anus. The polyp was sessile.The polyp was removed with a cold snare. Resection and retrieval were complete. Estimated blood loss was minimal. Many small and large-mouthed diverticula were foundin the sigmoid colon and descending colon. Retroflexion in the right colon was performed. Non-bleeding internal hemorrhoids were found during retroflexion. The hemorrhoids were moderate. The exam was otherwise without abnormality on direct and retroflexion views. Impression: - One 5 mm polyp in the distal sigmoid colon at 15cm proximal to the anus, removed with a cold snare. Resected and retrieved. - Diverticulosis in the sigmoid colon and in the descending colon. - Non-bleeding internal hemorrhoids. - The examination was otherwise normal on direct and retroflexion views. Recommendation: - I will send results of your biopsy to you and your referring physician or provider. If you do notreceive notification within 3 weeks, please call ouroffice. - Repeat colonoscopy in 3 years for surveillancebased on pathology results based upon health status reassessment. KEEGAN CHANDLER MD 10/03/2020 8:31:14 AM This report has been signed electronically. Number of Addenda: 0 Note Initiated On: 10/03/2020 8:07 AM Procedure Code(s): --- Professional --- 39688, Colonoscopy, flexible; with removal of tumor(s), polyp(s), or other lesion(s) by snare technique --- Technical --- 96187, Colonoscopy, flexible; with removal of tumor(s), polyp(s), or other lesion(s) by snare technique Diagnosis Code(s): --- Professional --- Z86.010, Personal history of colonic polyps D12.5, Benign neoplasm of sigmoid colon K64.8, Other hemorrhoids C18.9, Malignant neoplasm of colon, unspecified K57.30, Diverticulosis of large intestine without perforation or abscess without bleeding --- Technical --- Z86.010, Personal history of colonic polyps D12.5, Benign neoplasm of sigmoid colon K64.8, Other hemorrhoids C18.9, Malignant neoplasm of colon, unspecified K57.30, Diverticulosis of large intestine without perforation or abscess without bleeding CPT copyright 2018 [employer] [place] [employer]. All rights reserved. The codes documented in this report are preliminary and upon makeup artist reviewmay be revised to meet current compliance requirements. Procedure Date: 10/03/2020 8:07:14 AM [address] [place] [address] Dipak Hopson MD GI PROCEDURE ORDERABLES Final Result * DXA Monitoring (02/05/2020 12:39 PM EDT) Anatomical Region Laterality Modality Bone Density Bone Density Dipak Hopson MD IMG BD BONE DENSITY DEXA Matilde l Result from Last 3 Months or Most Recently Relevant to Health Maintenance Insurance MEDICARE PART A & B [place] MEDICARE SUPPLE[place] MEDICARE PART A & B MEDICARE SUPPLEMENT MEDICARE PART A & B MEDICARE SUPPLEMENT MEDICARE PART A & B [place] MEDICARE SUPPLEMENT MEDICARE PART A & B Member Subscriber Plan / Payer (Ef fective 2003-Present) Name:Vivian Jonesn Member ID:[id number] Relation to Subscriber:Self Name:Vivian Jonesn Subscriber ID:[id number] Payer ID:[id number] Group ID:Not on file Type:Medicare Address: [employer] [address] MEDICARE SUPPLEMENT MEDICARE PART A & B MEDICARE SUPPLEMENT MEDICARE PART A & [place] MEDICARE PART A & B [place] SUPPLE[place] MEDICARE PART A & B [place] MEDICARE SUPPLEMENT Care Teams Assistant Director Of Nursing Relationship Specialty Start Date End Date Dipak Hopson MD [address] [place] [address] [email or web address] PCP - General Internal Medicine 07/26/20 Dipak Hopson MD [address] [place] [address] [email or web address] Historical LMR Provider 05/02/17 Renée Pizarro MD [address] [place] [address] [email or web address] 01/28/20 Dominik Gabriel MD [address] [place] [address] [email or web address] 08/04/20 Dipak Hopson MD [address] [place] [address] [email or web address] Insurance Assigned Provider 10/19/23 Additional Source Comments The information contained in this document represents components of the legal health record. It is not the complete legal health record.[facility]
--- OUTSIDE RECORDS SUMMARY | 2025-05-24 12:03 | XMS_ITS | Encounter Summary ---
Author Organization [facility] Address [address] [place] [address] Phone Care Team Providers Care Tile Applicator Name Role Phone Dipak Hopson MD Unavailable Renée Pizarro MD Unavailable [phone] Dipak Hopson MD Primary Care Provider Dominik Gabriel MD Unavailable [phone] Dipak Hopson MD Unavailable Encounter Details Date Type Department Care Team (Late st Contact Info) Description 05/09/2025 [facility] [address] [place] [address] [address]rd Floor, [address] [place], [place] [id number] Provider, MD Elsa [facility] [place] [address] Social History Tobacco Use Types Packs/Day Years Used Date Smoking Tobacco: Former Cigarettes 1 20 0 01/19/1959 - 01/20/1972 Smokeless Tobacco: Never Alcohol Use Standard Drinks/Week Comments Yes 7 [...] Description 05/24/2025 2:00 PM EST Office Visit [facility] Internal Medicine [address] [place] [address] Dipak Hopson MD [address] [place] [id number] 06/29/2025 12:15 PM EST Office Visit [facility] [address] [place] [address] 3rd [facility], [address] [place] [phone] Lonnie Cordova DO [address] [place] [address] [phone] 12/13/2025 1:00 PM EDT Office Visit [facility] [address] [place] [address] Dipak Hopson MD [address] [place] [address] [phone] documented as of this encounter Procedures Procedure Name Priority Date/Time Associated Diagnosis Comments OUTSIDE EP STUDY Routine 03/10/2025 2:39 PM EDT documented in this encounter Results * Outside EP Study Report Only (03/10/2025 2:39 PM EDT) Historical Provider MD BINH SMYTH Final Result documented in this encounter Visit Diagnoses Not on filedocumented in this encounter Additional Health Concerns Assessment Noted Time PHQ-2 Depression Total Score: 2 12/11/19 25 12:44 PM EDT documented as of this encounter Care Teams Tile Applicator Relationship Specialty Start Date End Date Dipak Hopson MD [address] [place] [address] PCP - General Internal Medicine 07/26/20 Dipak Hopson MD [address] [place] [address] Historical LMR Provider 05/02/17 Renée Pizarro MD [address] [place] [address] [email or web address] 01/28/20 Dominik Gabriel MD [address] [place] [email or web address] Family Medicine 08/04/20 Dipak Hopson MD [address] [place] [address] Insurance Assigned Provider 10/19/23 documented as of this encounter Additional Source Comments The information contained in this document represents components of the legal health record. It is not the complete legal health record.[facility]
== END 2025-05-24 10:16 | disposition home or self-care (01) ==
LOC: HO.MAMMO 10:15
PROVIDERS: PCP Internal Medicine; Visit Provider Internal Medicine
DX: Z12.31 Encounter for screening mammogram for malignant neoplasm of breast (principal)
CPT/HCPCS: 77063; 77067

== ENCOUNTER → 2025-05-24 10:30 | Outpatient (BNV) | payer MEDICARE, OTHER, SELFPAY | PROVIDERS: PCP Internal Medicine; Visit Provider Internal Medicine | DX: Z12.31 Encounter for screening mammogram for malignant neoplasm of breast (principal) | CPT/HCPCS: 77063; 77067 ==